=== PATIENT | female | born 1970 | race Caucasian/White ===

== ENCOUNTER → 2017-02-04 | Day surgery (SDC) | payer OTHER ==
[~2017-02-04] MED LIST: BACLOFEN10 MG PO; CARAFATE1 GM; CIPRO PO; DIAZEPAM; DICLOFENAC PO; FAMOTIDINE PO; FLAGYL PO; FLEXERIL10 M1 PO; FLEXERIL10 MG PO; HYDROCODON-ACE1 EAC5 PO; LORTAB 10-5001 EACH PO; LORTAB 10/500 T1 TAB PO; LORTAB 7.5-5001 TAB PO; NEURONTIN300 MG PO; NORCO 10/325 TA1 TAB PO; OMEPRAZOLE20 M1 PO; PHENERGAN PO; PROTONIX PO; ROXICODONE5 MG PO; VOLTAREN50 MG PO; VOLTAREN75 MG PO; ZANTAC PO; ZANTAC150 MG PO
--- NOTE | ~2017-02-04 | OR ---
Unit #: [id number] #: [id number] Patient: GER JOHNSON [id number] [facility] [address] [place], [place] [address] [id number] O MR#: [id number] NAME: GER JOHNSON ROOM: Date of Procedure: 02/04/2017 Admission Date: 02/04/2017 Surgeon: Gustavo Barron M.D. : 1970 Attending Physician: Gustavo Barron M.D. OPERATIVE REPORT PREOPERATIVE DIAGNOSES Worsening reflux symptoms, epigastric pain, nausea, and intermittent rectal bleeding. POSTOPERATIVE DIAGNOSES Severe gastritis, aphthous ulcers of the antrum, possible [place] mucosa of the distal esophagus. PROCEDURES PERFORMED Esophagogastroduodenoscopy with biopsy x4 and colonoscopy. ANESTHESIA Monitored anesthesia. INDICATIONS FOR PROCEDURE A 46-year-old female, who presents to the office with the above complaints. She said that the reflux has been getting worse despite taking odwy-noy-lttvkek medications. She describes some intermittent rectal bleeding with blood mixed with stool, not just blood on the toilet paper. DESCRIPTION OF PROCEDURE The patient was admitted to [facility], positively identified, and transported to the endoscopy unit and after appropriate monitoring and positioning, a bite block was placed and was sedated by the nurse director workforce management. The endoscope was passed through the oral cavity into the esophagus. We passed through the upper and midesophagus and all was normal, but when we reached the distal esophagus, she had some salmon-colored tongues of mucosa extending above the GE junction. There was no ulceration. I could easily pass into the stomach, insufflated the stomach, and there was some residual fluid in the stomach making this worrisome for gastroparesis. I passed through the pylorus down to the second and third portion of duodenum. Duodenum and duodenal bulb showed evidence of some gastritis and a biopsy was taken. As we came back into the stomach, she had severe gastritis with evidence of some superficial aphthous ulcers. CLOtest and biopsy of the ulcer edges were performed. In retroflexing the scope above the incisura, no other findings in the upper fundus or cardia were noted. As I came back in a retrograde fashion, the GE junction was at 38 cm and customer response representative biopsy of the salmon-colored mucosa was taken to rule out any dysplasia. Rest of the esophagus and larynx were normal. After completion of the upper scope, the patient was repositioned. Rectal examination was normal. Colonoscope Unit #: [id number] #: [id number] Patient: GER JOHNSON was passed into the rectal vault. The patient had a very poor bowel prep. There was a large amount of liquid and solid stool throughout the colon; however, with flushing and irrigation, I was able to get through the colon to the cecum. There was no blood noted throughout the colon despite the large amount of residual stool. Fine mucosal detail could not be visualized, but I can safely say there was no bleeding and there were no significant masses. However, this was an inadequate exam and the patient will need to have a repeat examination once her nausea and epigastric pain resolved. I discussed this with the patient's . They will follow up after we get the results of the pathology back. Dictated by... Zbigniew England/ramesh TD: 02/04/2017 17:21 JOB #: [id number] OPERATIVE REPORT Page 1 of 1 X Gustavo Barron MD PROCEDURE OPERATIVE NOTE
== END | disposition home or self-care (01) ==
LOC: COPS 11:08
DX: K25.9 Gastric ulcer, unspecified as acute or chronic, without hemorrhage or perforation (principal); K12.0 Recurrent oral aphthae; K62.5 Hemorrhage of anus and rectum; K21.9 Gastro-esophageal reflux disease without esophagitis; M06.9 Rheumatoid arthritis, unspecified; M19.90 Unspecified osteoarthritis, unspecified site; F17.210 Nicotine dependence, cigarettes, uncomplicated; Z79.899 Other long term (current) drug therapy; Z90.49 Acquired absence of other specified parts of digestive tract; Z98.51 Tubal ligation status; Z98.890 Other specified postprocedural states
CPT/HCPCS: 87077; 88305; 88312; C9113